=== PATIENT | female | born 1955 | race Caucasian/White ===

== ENCOUNTER 2024-04-22 12:18 | Inpatient (IN) ==
[2024-04-22 13:38] LABS: Basophils # (auto) 0.07 K/uL (0.00-0.20); Eosinophils # (auto) 0.07 K/uL (0.00-0.50); Hemoglobin 15.6 g/dl (12.0-16.0); Immature Granulocytes # (auto) 0.01 K/uL (0.01-0.20); Immature Granulocytes % (auto) 0.1 %; Lymphocytes # (auto) 1.23 K/uL (1.20-3.40); Lymphocytes % (auto) 17.5 %; Mean Corpuscular Hemoglobin 31.3 pg (25.0-34.0); Mean Corpuscular Hgb Conc 33.9 g/dL (32.0-36.0); Mean Corpuscular Volume 92.2 fL (80.0-100.0); Mean Platelet Volume 11.3 fL (9.4-12.4); Monocytes % (auto) 7.1 %; Neutrophils # (auto) 5.15 K/uL (1.40-6.50); Neutrophils % (auto) 73.3 %; Platelet Count 309 K/uL (130-400); RDW Coefficient of Variation 12.8 % (11.5-14.5); Red Blood Count 4.99 M/uL (4.20-5.40); White Blood Count 7.03 K/ul (4.8-10.8)
[2024-04-22 13:54] LABS: Albumin Globulin Ratio 1.5 (0.9-2); Albumin Level 4.7 gm/dl (3.4-5.0); BUN Creatinine Ratio 24.5 (10-20); Bilirubin,Total 1.2 mg/dl (0.2-1.0); Calcium 9.9 mg/dl (8.6-10.3); Creatinine Clr Calc Pharmacy 59.7 ml/min; Globulin 3.2 gm/dl (2.5-4.0); Total Protein 7.9 gm/dl (6.0-8.3)
--- NOTE | 2024-04-22 13:57 | XRay Report ---
XR chest 1V portable HISTORY: 68 years-old Female Chest pain, nonspecific COMPARISON: None TECHNIQUE: AP view of the chest FINDINGS: Cardiac silhouette is upper limits of normal in size. No pneumothorax, pleural effusion or pulmonary edema. Minimal left basilar atelectasis. Bones appear grossly intact. IMPRESSION: No acute process. ACT 112: Negative or not required by law. The above report was generated using voice recognition software. It may contain grammatical, syntax o r spelling errors. Electronically signed by: Randy To M.D. 04/22/2024 1:55 PM
[2024-04-22 14:01] LABS: Troponin I High Sensitivity 6.8 pg/ml (0-14)
[2024-04-22 14:05] LABS: Partial Thromboplastin Ratio 0.9; Partial Thromboplastin Time 24 Seconds (21-31); Prothrombin Time 10.4 Seconds (9.0-12.0)
[2024-04-22 14:15] LABS: Influenza A virus by PCR Negative (Neg); Influenza B virus by PCR Negative (Neg); RSV by PCR Negative (Neg); SARS CoV2 RNA(COVID-19) Ceph NEGATIVE (Negative)
--- NOTE | 2024-04-22 14:31 | Emergency Department Note ---
Impression & Plan Dysrhythmia, Tachycardia, Bradycardia, Heart palpitations ED Provider Note HISTORY OF PRESENT ILLNESS: Patient is a 68-year-old female presenting with episodes of tachycardia and bradycardia. Patient reports that she has been having intermittent episodes of bradycardia over the last few years. She states she has had extensive cardiac workup, but states that in the last few weeks her episodes are occurring more frequently. She states that her care is being transferred from [facility] to the [facility] and her doctor was ordering a bunch of lab work and an echocardiogram. Patient reports in the last week she has been having significant amounts of bradycardic episodes in which she feels very lightheaded and fatigued. Reports that she sleeps 10 to 12 hours a night and is still very tired when she wakes in the morning. States that at times her heart rate also is elevated and feels like her heart is racing. She states that last night she was unable to sleep secondary to her persistent tachycardia. Reports that this morning she was on her way to the hospital to get blood work done when she was walking to her car and her heart rate went up to 170 and has been persistently tachycardic since. Denies any DVT or PE history. Denies any recent surgery or long travel. She is not on any anticoagulation or antiplatelet therapy. Denies any history of cardiac stents. Denies any recent nausea or vomiting. Denies any fevers. Patient denies any recent medication changes. ROS: as above PHYSICAL EXAM: Constitutional: Patient appears in no acute distress. HENT: Head: Normocephalic and atraumatic. Eyes: EOMI, PERRL Mouth/Throat: Mucous membranes moist. Neck: Trachea midline. Neck supple. Cardiovascular: Tachycardic with regular rhythm. No murmurs, rubs or gallops. Intact distal pulses. Pulmonary/Chest: No respiratory distress. Breath sounds clear and equal bilaterally. No wheezes or rales. Abdominal: Abdomen soft, no tenderness, rebound or guarding. Musculoskeletal: No edema, tenderness or deformity noted. Skin: Warm and dry. No rash, erythema, pallor or cyanosis Psychiatric: Appropriate mood and affect for situation. Neurological: Alert and keenly responsive. CN II-XII grossly intact, moving all extremities equally and fully. MDM: - Vitals signs showed tachycardia - History obtained via patient. History as above. - Chronic conditions affecting care: HTN - Differential diagnoses include, but are not limited to: Electrolyte abnormality; hypo or hyperthyroidism; ACS; pneumonia; dysrhythmia; dehydration; PE - Order placed for continuous cardiac monitoring. At this time, monitor showed rate of 66 bpm with normal sinus rhythm, per my interpretation. - External medical records reviewed. - EKG image interpreted by myself showed atrial fibrillation. Rate 124 bpm. QT 264. No acute ischemic changes - Laboratory workup interpreted by myself showed normal WBC; normal PT/INR; elevated D-dimer (1110); normal electrolytes; elevated total bilirubin (1.2); normal troponin; normal TSH - COVID/flu/RSV negative - CXR imagine interpreted myself is negative for any evidence of pneumonia, per my interpretation. - CT PE negative for PE. Noted to have mild cardiomegaly and simple renal cysts. Also noted to have a low suspicious right upper lobe pulmonary nodule. - Patient given 1L NS in ER. Patient was persistently tachycardic in the ER, with an average heart rate in the 120s to 130s. Her heart rate did go down to the low 100s after her liter bolus. However, patient stated she started to feel flushed and develop a diffuse headache and her heart rate dropped into the 50s and into a normal sinus rhythm. A repeat EKG obtained at 17:44 interpreted myself showed normal sinus rhythm. Rate 62 bpm. QT 436. No acute ischemic changes. Noted to have PVCs. Also noted to have a shortened MN interval. - Given patient's age and episodes of tachycardia and bradycardia, will admit to hospital service for further cardiac workup. - Discussion was had with case operator about patient's case and need for admission - Hospitalist consulted for admission - Patient admitted to [facility] for further evaluation and management. ASSESSMENT AND PLAN: Diagnosis: Dysrhythmia; tachycardia; bradycardia; palpitations Plan: Admit Past Med/Surg History Problem List (Updated 04/22/24 @ 18:12 by Arlet Gregory MD) Heart palpitations (Acute) Bradycardia (Acute) Tachycardia (Acute) Dysrhythmia (Acute) Social History Smoking Status: Never smoker Feels Safe at Home: Yes Home Meds Home Medications Medication Instructions Recorded Confirmed alprazolam 0.25 mg tablet 0.25 mg PO DIRECTED 04/22/24 hydrochlorothiazide 12.5 mg tablet 12.5 mg PO DAILY 04/22/24 04/22/24 Results & Data (ED) Vital Signs Vital Signs - 24 hr 04/22/24 12:22 04/22/24 13:37 04/22/24 13:37 Temperature Temperature Source Pulse Rate 103 H 143 H Pulse Rate from SpO2 Sensor Pulse Rhythm Irregular Respiratory Rate 20 20 Blood Pressure 128/80 Blood Pressure Mean 96 Pulse Oximetry 99 99 Oxygen Delivery Method Room Air Room Air Room Air Sepsis Recent Fever Within 48 Hours No Sepsis New/Unexplained Change in Mental Status N/A Sepsis Action Taken by Nursing No Action Required 04/22/24 14:00 04/22/24 14:01 04/22/24 14:04 Temperature 36.8 C Temperature Source Oral Pulse Rate 124 H 136 H Pulse Rate from SpO2 Sensor 127 H Pulse Rhythm Respiratory Rate 31 H Blood Pressure 125/103 H Blood Pressure Mean 117 Pulse Oximetry 96 Oxygen Delivery Method Room Air Sepsis Recent Fever Within 48 Hours Sepsis New/Unexplained Change in Mental Status Sepsis Action Taken by Nursing 04/22/24 14:33 04/22/24 15:06 04/22/24 15:33 Temperature Temperature Source Pulse Rate 108 H 100 H 111 H Pulse Rate from SpO2 Sensor 102 H 105 H 91 H Pulse Rhythm Respiratory Rate 15 19 18 Blood Pressure 126/104 H 142/111 H 166/115 H Blood Pressure Mean 111 121 132 Pulse Oximetry 95 97 99 Oxygen Delivery Method Room Air Room Air Sepsis Recent Fever Within 48 Hours Sepsis New/Unexplained Change in Mental Status Sepsis Action Taken by Nursing 04/22/24 16:09 04/22/24 16:30 04/22/24 17:03 Temperature Temperature Source Pulse Rate 115 H 112 H 117 H Pulse Rate from SpO2 Sensor 135 H 102 H 125 H Pulse Rhythm Respiratory Rate 21 28 H 19 Blood Pressure 145/117 H 104/76 159/104 H Blood Pressure Mean 126 85 122 Pulse Oximetry 88 L 98 99 Oxygen Delivery Method Sepsis Recent Fever Within 48 Hours Sepsis New/Unexplained Change in Mental Status Sepsis Action Taken by Nursing 04/22/24 17:42 Temperature Temperature Source Pulse Rate 63 Pulse Rate from SpO2 Sensor Pulse Rhythm Respiratory Rate Blood Pressure Blood Pressure Mean Pulse Oximetry Oxygen Delivery Method Sepsis Recent Fever Within 48 Hours Sepsis New/Unexplained Change in Mental Status Sepsis Action Taken by Nursing Laboratory Data 04/22/24 13:16 04/22/24 13:16 Lab Results 04/22/24 04/22/24 Range/Units 13:16 13:18 WBC 7.03 (4.8-10.8) K/ul RBC 4.99 (4.20-5.40) M/uL Hgb 15.6 (12.0-16.0) g/dl Hct 46.0 (37.0-47.0) % MCV 92.2 (80.0-100.0) fL MCH 31.3 (25.0-34.0) pg MCHC 33.9 (32.0-36.0) g/dL RDW Std Deviation 43.0 (36.4-46.3) fL RDW Coeff of Valorie 12.8 (11.5-14.5) % Plt Count 309 (130-400) K/uL MPV 11.3 (9.4-12.4) fL Immature Gran % (Auto) 0.1 % Neut % (Auto) 73.3 % Lymph % (Auto) 17.5 % [place] % (Auto) 7.1 % Eos % (Auto) 1.0 % Baso % (Auto) 1.0 % Neut # (Auto) 5.15 (1.40-6.50) K/uL Lymph # (Auto) 1.23 (1.20-3.40) K/uL [place] # (Auto) 0.50 (0.11-0.59) K/uL Eos # (Auto) 0.07 (0.00-0.50) K/uL Baso # (Auto) 0.07 (0.00-0.20) K/uL Immature Gran # (Auto) 0.01 (0.01-0.20) K/uL PT 10.4 (9.0-12.0) Seconds INR 1.0 (0.9-1.1) APTT 24 (21-31) Seconds PTT Ratio 0.9 D-Dimer 1110 H* (0-500) ug/L FEU Sodium 139 (136-145) mmol/L Potassium 4.0 (3.5-5.1) mmol/L Chloride 104 (98-107) mmol/L Carbon Dioxide 27 (21-32) mmol/L Anion Gap 8 (3-11) BUN 23 (6-23) mg/dl Creatinine 0.94 (0.6-1.2) mg/dl Est Cr Clr Drug Dosing 59.7 ml/min eGFR 66.09 BUN/Creatinine Ratio 24.5 H (10-20) Glucose 116 H (70-99(Fasting)) mg/dl Calcium 9.9 (8.6-10.3) mg/dl Magnesium 2.0 (1.7-2.4) mg/dl Total Bilirubin 1.2 H (0.2-1.0) mg/dl AST 19 (13-39) U/L ALT 20 (7-52) U/L Alkaline Phosphatase 54 (34-104) U/L Troponin I High Sens 6.8 (0-14) pg/ml Total Protein 7.9 (6.0-8.3) gm/dl Albumin 4.7 (3.4-5.0) gm/dl Globulin 3.2 (2.5-4.0) gm/dl Albumin/Globulin Ratio 1.5 (0.9-2) TSH 2.088 (0.300-4.500) uIu/ml SARS-CoV-2 (PCR) NEGATIVE (Negative) Influenza Type A (PCR) Negative (Neg) Influenza Type B (PCR) Negative (Neg) RSV (RT-PCR) Negative (Neg) Administered Medications Discontinued Medications Sodium Chloride (Nss) 1,000 mls @ 999 mls/hr IV .Q1H1M ONE Stop: 04/22/24 15:28 Last Infusion: 04/22/24 17:13 Dose: Infused Documented By: Admin: 04/22/24 15:02 Dose: 999 mls/hr Documented By: SRL Ioversol (Optiray 320 125ml) 115 ml IV ONCE ONE Stop: 04/22/24 16:55 Last Admin: 04/22/24 16:54 Dose: 115 ml Documented By: ZENY Imaging Data Radiologist's Impression: Chest X-Ray 04/22/24 12:25 XR chest 1V portable HISTORY: 68 years-old Female Chest pain, nonspecific COMPARISON: None TECHNIQUE: AP view of the chest FINDINGS: Cardiac silhouette is upper limits of normal in size. No pneumothorax, pleural effusion or pulmonary edema. Minimal left basilar atelectasis. Bones appear grossly intact. IMPRESSION: No acute process. ACT 112: Negative or not required by law. The above report was generated using voice recognition software. It may contain grammatical, syntax or spelling errors. Electronically signed by: Randy To M.D. 04/22/2024 1:55 PM Chest CTA 04/22/24 16:35 EXAM: CT Angiography Chest With Intravenous Contrast INDICATION: Extremely variable heart rate. TECHNIQUE: Axial computed tomographic angiography images of the chest with intravenous contrast. Sagittal and coronal reformatted images were created and reviewed. This CT exam was performed using one or more of the following dose reduction techniques: automated exposure control, adjustment of the mA and/or kV according to patient size, and/or use of iterative reconstruction technique. MIP reconstructed images were created and reviewed. CONTRAST: 115ml of Optiray 320 was administered intravenously. COMPARISON: No relevant prior studies available. FINDINGS: Pulmonary arteries: No abnormality noted. No pulmonary embolism. Aorta: No aneurysm or dissection. There is minimal scattered calcific plaque. Lungs and pleural spaces: There is mild atelectasis in the lower lobes left greater than right. Low suspicion 3 mm right apical nodule coronal image 48. No consolidation. No bronchiectasis, honeycombing or reticulation. No pleural effusion or pneumothorax. Heart: There is mild cardiomegaly particularly involving the left atrium. No pericardial effusion. There is minimal calcification of the mitral valve. No evidence of RV dysfunction. Mediastinum: Small sliding hiatal hernia noted. Bones/joints: No acute or atypical chronic changes. Soft tissues: No abnormality noted. Lymph nodes: Enlarged right hilar node measures 1.4 cm short axis dimension. There is a 1 cm borderline enlarged short axis dimension aorta pulmonic node. Liver: Low attenuation foci in the liver consistent with hepatic cysts. No follow-up is necessary. Gallbladder and bile ducts: Cholecystectomy. No ductal dilation or stone noted. 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 Simple cysts noted in each kidney. There are some indeterminant hypodensities in each kidney which are not characterized. IMPRESSION: 1. No pulmonary embolus noted. No aortic dissection. 2. Mild cardiomegaly particularly involving the left atrium. Minimal mitral calcification. 3. Mild atelectasis in the lung bases left greater than right. 4. Nonspecific probably reactive mild adenopathy. 5. Simple renal cysts and hypodensities which cannot be characterized due to size. No further assessment considered necessary. 6. 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 No further evaluation required. 7. 7 mm low suspicion right upper lobe pulmonary nodule. Fleischner Society Guidelines (MacMahon, et al. Radiology 2017; 284(1):228-43) suggest the following. For low-risk or high-risk patients consider chest CT at 12 months due to the morphology and/or location of this nodule. ACT 112: Negative or not required by law. Electronically signed by Lien Mehta 04-22-2024 5:25 PM Discharge Plan Visit Data Chief Complaint: Hypotension Stated Complaint: BRADACARDIA, HYPOTENSION, SOB ED Provider: Arlet Gregory Discharge Problem: Dysrhythmia, Tachycardia, Bradycardia, Heart palpitations Forms Stand Alone Forms: [facility] Prescriptions Prescriptions: No Action alprazolam 0.25 mg tablet 0.25 mg PO DIRECTED hydrochlorothiazide 12.5 mg tablet 12.5 mg PO DAILY Referrals Referrals: PCP,NO [Physician] -
[2024-04-22] MEDS: SODIUM CHLORIDE 0.9% 1,000 ML IV ONE (15:02)
[2024-04-22 15:35] LABS: Thyroid Stimulating Hormone 2.088 uIu/ml (0.300-4.500)
--- NOTE | 2024-04-22 15:36 | Electrocardiogram Report ---
Test Reason : Blood Pressure : */* mmHG Vent. Rate : 124 BPM Atrial Rate : 124 BPM P-R Int : 184 ms QRS Dur : 88 ms QT Int : 264 ms P-R-T Axes : 32 29 224 degrees QTcB Int : 379 ms Atrial fibrillation with rapid ventricular response Left ventricular hypertrophy with repolarization abnormality ( R in aVL ) Abnormal ECG No previous ECGs available Confirmed by Carlo Ramos ([id number]) on 04/22/2024 3:35:37 PM Referred By: REFERRED SELF Confirmed By: Carlo Ramos
[2024-04-22 16:28] LABS: D Dimer 1110 ug/L FEU (0-500)
[2024-04-22] MEDS: OPTIRAY 320 125ml IV ONE (16:54)
--- NOTE | 2024-04-22 17:25 | CT Scan Report ---
EXAM: CT Angiography Chest With Intravenous Contrast INDICATION: Extremely variable heart rate. TECHNIQUE: Axial computed tomographic angiography images of the chest with intravenous contrast. Sagittal and coronal reformatted images were created and reviewed. This CT exam was performed using one or more of the following dose reduction techniques: automated exposure control, adjustment of the mA and/or kV according to patient size, and/or use of iterative reconstruction technique. MIP reconstructed images were created and reviewed. CONTRAST: 115ml of Optiray 320 was administered intravenously. COMPARISON: No relevant prior studies available. FINDINGS: Pulmonary arteries: No abnormality noted. No pulmonary embolism. Aorta: No aneurysm or dissection. There is minimal scattered calcific plaque. Lungs and pleural spaces: There is mild atelectasis in the lower lobes left greater than right. Low suspicion 3 mm right apical nodule coronal image 48. No consolidation. No bronchiectasis, honeycombing or reticulation. No pleural effusion or pneumothorax. Heart: There is mild cardiomegaly particularly involving the left atrium. No pericardial effusion. There is minimal calcification of the mitral valve. No evidence of RV dysfunction. Mediastinum: Small sliding hiatal hernia noted. Bones/joints: No acute or atypical chronic changes. Soft tissues: No abnormality noted. Lymph nodes: Enlarged right hilar node measures 1.4 cm short axis dimension. There is a 1 cm borderline enlarged short axis dimension aorta pulmonic node. Liver: Low attenuation foci in the liver consistent with hepatic cysts. No follow-up is necessary. Gallbladder and bile ducts: Cholecystectomy. No ductal dilation or stone noted. 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 Simple cysts noted in each kidney. There are some indeterminant hypodensities in each kidney which are not characterized. IMPRESSION: 1. No pulmonary embolus noted. No aortic dissection. 2. Mild cardiomegaly particularly involving the left atrium. Minimal mitral calcification. 3. Mild atelectasis in the lung bases left greater than right. 4. Nonspecific probably reactive mild adenopathy. 5. Simple renal cysts and hypodensities which cannot be characterized due to size. No further assessment considered necessary. 6. 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 No further evaluation required. 7. 7 mm low suspicion right upper lobe pulmonary nodule. Fleischner Society Guidelines (MacMahon, et al. Radiology 2017; 284(1):228-43) suggest the following. For low-risk or high-risk patients consider chest CT at 12 months due to the morphology and/or location of this nodule. ACT 112: Negative or not required by law. Electronically signed by Lien Mehta 04-22-2024 5:25 PM
--- NOTE | 2024-04-22 17:47 | History & Physical Report ---
Date of Service April 22, 2024 Assessment & Plan (1) Tachy-raymond syndrome: Plan Khushi is a pleasant 68-year-old female without significant PMH. She presented on 04/22 for intermittent episodes of tachycardia and bradycardia. Patient reports she does have an extensive cardiac history. For the main part she is experienced bradycardia in the past. She would have episodes where she would be sitting at home watching TV, and she would feel her heart rate dropped into the 30 to 40 bpm range. She also has this occur when she is driving for extended periods of time. She begins to feel lightheaded, and so she usually tries to get up and walk around, and this alleviates some of her symptoms. In the past month however, she had at least 4 episodes of chest palpitations and rapid heart rate, with the last episode being the morning on 04/22 when it got up to 165 bpm (per her watch). No prior history of atrial fibrillation to her knowledge. #Tachybradycardia syndrome Patient has been oscillating between 160 bpm and 30 bpm in the emergency department Patient becomes symptomatic/lightheaded when bradycardic, and can feel chest palpitations when she becomes tachycardic No prior history of CAD or heart stents Troponin WNL on arrival TSH WNL on arrival Chest CTA did not reveal acute pulmonary emboli or aortic abnormalities While the initial EKG was read as atrial fibrillation with RVR, repeat EKG revealed clear P waves (sinus rhythm with short PA) Echocardiogram ordered, pending Lyme screen ordered, pending Continuous telemetry monitoring Cardiology consult appreciated Pacer pads at bedside Atropine 1 mg IV on-call PRN for symptomatic bradycardia and/or hemodynamic instability Avoid beta-blockers Disposition: Admit to PCU telemetry Full code Regular diet VTE PPx: Lovenox 40 mg SQ q24h History of Present Illness Chief Complaint: Intermittent tachycardia and bradycardia Primary Care Provider: Kirstie Fajardo MD Khushi is a pleasant 68-year-old female without significant PMH. She presented on 04/22 for intermittent episodes of tachycardia and bradycardia. Patient reports she does have an extensive cardiac history. For the main part she is experienced bradycardia in the past. She would have episodes where she would be sitting at home watching TV, and she would feel her heart rate dropped into the 30 to 40 bpm range. She also has this occur when she is driving for extended periods of time. She begins to feel lightheaded, and so she usually tries to get up and walk around, and this alleviates some of her symptoms. In the past month however, she had at least 4 episodes of chest palpitations and rapid heart rate, with the last episode being the morning on 04/22 when it got up to 165 bpm (per her watch). No prior history of atrial fibrillation to her knowledge. She was recently tried to get set up with a operations intelligence here in [place], and was recommended to be set up with an lead javascript developer in [place]. Patient did have a Holter monitor 3 years ago, but they reportedly did not see any bradycardia at that time. She is not currently following with operations intelligence; currently being transferred over from [facility] to the [facility]. No prior history of heart stents. She has had 2 catheterizations in the past both of which were "clean". Her last catheterization was around 5 years ago. Her only daily medication is hydrochlorothiazide 12.5 mg daily which she takes for fluid buildup; no issues with her blood pressure. Occasionally she also takes seasonal allergy medications. Patient only drinks 1 cup of coffee in the morning, and does not believe that this is secondary to caffeine. She denies any syncopal episodes with her bradycardia, but has been as low as 36 bpm before. She does endorse being around several sick contacts this past week, including her who had a cough and congestion, and her daughter who had influenza A. Patient denies noticing any rashes on her body or tick bites. Patient denies smoking, tobacco use, recent alcohol use. She reports she has not had an echocardiogram done in an extended period of time; unsure how long. Patient is hypertensive at 159/104 at time admission; vitals otherwise stable. ED course: NSS 1000 mL IV ROS: Patient endorses generalized fatigue, lightheadedness, headache, difficulty swallowing, chest palpitations (with tachycardia), lightheadedness (with bradycardia), and dry cough. Patient denies syncope, fever, chills, night-sweats, chest pain, pleuritic CP, SOB, abdominal pain, N/V/D, changes in urinary/bowel habits, or numbness or tingling in her arms or legs. Home Medications Medication Instructions Recorded Confirmed Type alprazolam 0.25 mg tablet 0.25 mg PO UD 04/22/24 04/22/24 History hydrochlorothiazide 12.5 mg tablet 12.5 mg PO DAILY 04/22/24 04/22/24 History Past Med/Surg History Problem List (Updated 04/22/24 @ 18:51 by Lai Mares PA-C) Tachy-raymond syndrome Heart palpitations (Acute) Bradycardia (Acute) Tachycardia (Acute) Dysrhythmia (Acute) Social History Smoking Status: Never smoker Feels Safe at Home: Yes Review of Systems Review of Systems: See HPI above Physical Exam Physical Exam: General: no acute distress; pleasant affect; non-toxic appearing; well- nourished; cooperative HEENT: normocephalic, atraumatic; no scleral icterus; PERRLA w/ EOMs intact; vision and hearing grossly intact Neck: supple; no lymphadenopathy; trachea midline Skin: warm, dry without signs of tenting; no cyanosis; no rashes, bruising, lesions, or erythema noted CV: chest wall NTP; irregular rhythm around 60 bpm; S1/S2 normal; no murmurs/rubs/gallops; pulses intact and symmetric at radial, DP, and PT Lungs: no acute respiratory distress; symmetrical chest wall expansion; clear breath sounds across all lung franklin w/o adventitious sounds; no wheezing ABD: Soft, NTP; BS present; no rebound/guarding; no distention; no rashes or bruising appreciated on the abdomen or flanks bilaterally MSK: no tics or fasciculations; no edema noted in the LEs b/l, nonerythematous Neuro: A&Ox3; normal mood and affect; fluent speech; no focal deficits; sensation intact and symmetric in the lower extremities bilaterally Results & Data Results & Data Vital Signs (Past 12 Hours) Vital Signs Temp Pulse Resp BP Pulse Ox O2 Del Method 04/22/24 17:03 117 H 19 159/104 H 99 04/22/24 16:30 112 H 28 H 104/76 98 04/22/24 16:09 115 H 21 145/117 H 88 L 04/22/24 15:33 111 H 18 166/115 H 99 04/22/24 15:06 100 H 19 142/111 H 97 Room Air 04/22/24 14:33 108 H 15 126/104 H 95 Room Air 04/22/24 14:04 136 H 04/22/24 14:01 124 H 31 H 125/103 H 96 Room Air 04/22/24 14:00 36.8 C 04/22/24 13:37 143 H 20 99 Room Air 04/22/24 13:37 Room Air 04/22/24 12:22 103 H 20 128/80 99 Room Air Laboratory Results Abnormal lab results 04/22/24 Range/Units 13:16 D-Dimer 1110 H* (0-500) ug/L FEU BUN/Creatinine Ratio 24.5 H (10-20) Glucose 116 H (70-99(Fasting)) mg/dl Total Bilirubin 1.2 H (0.2-1.0) mg/dl Diagnostic Findings Chest X-Ray 04/22/24 12:25 XR chest 1V portable HISTORY: 68 years-old Female Chest pain, nonspecific COMPARISON: None TECHNIQUE: AP view of the chest FINDINGS: Cardiac silhouette is upper limits of normal in size. No pneumothorax, pleural effusion or pulmonary edema. Minimal left basilar atelectasis. Bones appear grossly intact. IMPRESSION: No acute process. ACT 112: Negative or not required by law. The above report was generated using voice recognition software. It may contain grammatical, syntax or spelling errors. Electronically signed by: Randy To M.D. 04/22/2024 1:55 PM Chest CTA 04/22/24 16:35 EXAM: CT Angiography Chest With Intravenous Contrast INDICATION: Extremely variable heart rate. TECHNIQUE: Axial computed tomographic angiography images of the chest with intravenous contrast. Sagittal and coronal reformatted images were created and reviewed. This CT exam was performed using one or more of the following dose reduction techniques: automated exposure control, adjustment of the mA and/or kV according to patient size, and/or use of iterative reconstruction technique. MIP reconstructed images were created and reviewed. CONTRAST: 115ml of Optiray 320 was administered intravenously. COMPARISON: No relevant prior studies available. FINDINGS: Pulmonary arteries: No abnormality noted. No pulmonary embolism. Aorta: No aneurysm or dissection. There is minimal scattered calcific plaque. Lungs and pleural spaces: There is mild atelectasis in the lower lobes left greater than right. Low suspicion 3 mm right apical nodule coronal image 48. No consolidation. No bronchiectasis, honeycombing or reticulation. No pleural effusion or pneumothorax. Heart: There is mild cardiomegaly particularly involving the left atrium. No pericardial effusion. There is minimal calcification of the mitral valve. No evidence of RV dysfunction. Mediastinum: Small sliding hiatal hernia noted. Bones/joints: No acute or atypical chronic changes. Soft tissues: No abnormality noted. Lymph nodes: Enlarged right hilar node measures 1.4 cm short axis dimension. There is a 1 cm borderline enlarged short axis dimension aorta pulmonic node. Liver: Low attenuation foci in the liver consistent with hepatic cysts. No follow-up is necessary. Gallbladder and bile ducts: Cholecystectomy. No ductal dilation or stone noted. 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 Simple cysts noted in each kidney. There are some indeterminant hypodensities in each kidney which are not characterized. IMPRESSION: 1. No pulmonary embolus noted. No aortic dissection. 2. Mild cardiomegaly particularly involving the left atrium. Minimal mitral calcification. 3. Mild atelectasis in the lung bases left greater than right. 4. Nonspecific probably reactive mild adenopathy. 5. Simple renal cysts and hypodensities which cannot be characterized due to size. No further assessment considered necessary. 6. 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 No further evaluation required. 7. 7 mm low suspicion right upper lobe pulmonary nodule. Fleischner Society Guidelines (MacMahon, et al. Radiology 2017; 284(1):228-43) suggest the following. For low-risk or high-risk patients consider chest CT at 12 months due to the morphology and/or location of this nodule. ACT 112: Negative or not required by law. Electronically signed by Lien Mehta 04-22-2024 5:25 PM ECG Additional Comments: Initial ECG revealed atrial fibrillation with RVR at 124 bpm Repeat ECG revealed sinus rhythm with short PA with occasional PVCs and PACs at 62 bpm; QTc 442 Code Status & VTE Plan Code Status Full code VTE Prophylaxis Plan VTE Prophylaxis will be ordered: Yes Supervising Physician Co-Signing Physician Notes Patient seen and examined, chart reviewed, case discussed with Lai Mares PA-C and I agree with the assessment and plan as above except as otherwise noted Labs and images reviewed Khushi is 68-year-old female who presents with palpitations, lightheadedness, and concerns for anxiety. While in the ER patient is noted to have tachybradycardia syndrome alternating between tachycardia and [id number] with symptomatic palpitations and general unwellness and then alternating with bradycardia as low as the 30s with lightheadedness. She has not had chest pain. She is not on anticoagulation. No prior ischemic disease. She is up in [place] patient currently transferring care over to [facility]. Records requested for outpatient records and recent echo D-dimer is elevated however CTA does not show evidence of PE. Mild atelectasis is noted. Suspected reactive mild adenopathy is noted. Incidental 9 mm angiomyolipoma of the right kidney without hemorrhage is noted. 7 mm low suspicion right upper lobe pulmonary nodule is noted for which patient can have a repeat chest CT at 12 months for reevaluation as outpatient. High sensitive troponin is normal She is not on beta-blockers at baseline. Lyme screen pending She has had extensive workup in the past for bradycardia and has had 2 Holter's reportedly showed some bradycardia at night but were otherwise okay. She has a history of failed stress test but follow-up catheterizations did not show obstructive disease. Records are pending. She has not had chest pain with these episodes but her heart racing was new and she has not experienced this bef ore. She has not had any bleeding problems in the past and does not think she has ever had A-fib in the past. EKG on arrival is with A-fib rate 120. Repeat EKG while in the ER is with bradycardia and short PA now sinus. Admitted to PCU, pacer pads at bedside. Beta-ryan is not recommended due to symptomatic bradycardia with her tachybradycardia syndrome. Echo pending. Cardiology consulted Given documented A-fib and [id number] of 2 do recommend patient be on prophylactic anticoagulation.Lovenox 1mpk added. Patient could potentially transition to Eliquis or Xarelto, would like to review potential cost options with case management prior to deciding on any agent if possible PG Care Time/CCT Total # of Minutes Spent Total Time Spent with Patient: Total time spent is greater than 50% in coordination of care (as documented) at patient's floor/unit and/or counseling patient: [place] [address] INT INP/OBS CARE 3/75MIN Patient Type New Medical Decision Making High Complexity Diagnoses Tachy-raymond syndrome I49.5
[2024-04-22] MEDS ORDERED: ACETAMINOPHEN 325 MG TAB PO PRN (21:39)
[2024-04-22] MEDS ORDERED: ENOXAPARIN 1 MG/KG SQ SCH (21:39)
[2024-04-22] MEDS ORDERED: ATROPINE SO4 1 MG/ML 1ML VIAL IV PRN (21:39)
[2024-04-22] MEDS ORDERED: ONDANSETRON INJ 2 MG/ML 2 ML VIAL IV PRN (21:39)
[2024-04-23] MEDS: ENOXAPARIN 100 MG/1ML SYR SQ SCH (01:53)
--- NOTE | 2024-04-23 09:33 | Cardiology Consultation ---
Date of Consultation April 23, 2024 Assessment & Plan (1) Atrial fibrillation: (2) Heart palpitations: Plan 1. Atrial fibrillation: Her presenting rhythm appears to be atrial fibrillation. We want EKG for evaluation and some telemetry. Remote possibility that this represents atrial flutter, but the determination would suggest atrial fibrillation. She does have a watch that has not given her any warnings about atrial fibrillation. She is not confident that the current model would give her such a warning. I believe this is the first documentation of atrial fibrillation although it is possible she has had brief episodes in the past. She has a dilated left atrium and frequent atrial ectopy which provides the substrate for developing atrial fibrillation. Her [id number] score is at least 2. As such, I think she benefits from initiating systemic anticoagulati on. Any of the agents would be satisfactory, my recommendation would be Eliquis 5 mg twice daily. 2. Tachycardia/palpitations: Review of her telemetry suggest frequent atrial ectopy and runs of atrial tachycardia. This is likely what initiated her atrial fibrillation. Unclear if this has been documented previously but likely in the etiology of her palpitations over the years. Also possibly the etiology of her "bradycardia" as many of these ectopic beats were likely under counted by standard monitoring. Overall benign condition in the absence of symptoms, although it likely plays a role in the development of her atrial fibrillation. However, she appears to be quite symptomatic and I think both arrhythmias can be successfully treated with antiarrhythmic therapy. Given her structurally normal heart and presumed absence of coronary disease, she would be a good candidate for a class Ic agent. 1C agents are generally prescribed with some form of AV henrik suppression such as metoprolol. With her history of "bradycardia" I think with need to evaluate her heart rates more thoroughly. This could be done in the inpatient setting over the next few days or outpatient monitoring. Unclear to me if she truly has episodes of bradycardia or if these were paroxysmal in the past associated with high vagal tone. If she truly has periods of bradycardia then therapy for her tach arrhythmias would be complicated. That scenario would be an indication for permanent pacing which we discussed today. I gave the patient the option of staying in the hospital for monitoring over the next couple of days. This would primarily be to document bradycardia. In the setting of bradycardia she would be a good candidate for a pacemaker. In the absence of bradycardia we can feel comfortable initiating antiarrhythmic therapy and metoprolol. Alternatively, I think she could be safely discharged with outpatient monitoring as well. In either case starting anticoagulation is recommended based on her presenting arrhythmia. History of Present Illness Reason for Consultation: Tachycardia Requesting Physician: Sindy Attending Physician: Junito Holloway MD History of Present Illness The patient is a 68-year-old woman with a history of cardiac arrhythmia who presents to the hospital with an episode of palpitation. She reports an extensive evaluation over several years by her primary lucerne farmer in [place]. It seems that at least 10 years ago she was being evaluated for episodes of bradycardia and dizziness. Her evaluation involved outpatient monitoring, exercise stress testing, echocardiography and cardiac catheterization. Some of these tests were performed more than once. She also reports being evaluated by an ict developer in [place]. Recommendation at that time was to consider a tilt table test, increased salt and caffeine intake. By her report her outpatient monitors have generally been considered normal. She states that she performed 1 within the past 3 years through her primary care provider and was told that there were no abnormalities. She also recalls normal catheterization without percutaneous intervention and normal echocardiography. She has never been on medical therapy for her cardiac condition. In general she is an active person. 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 She walks regularly and her walking usually involves ascending and descending hills. She does not report any specific limitation with activity such as dyspnea, exertional chest pain or dizziness. In fact, when she is active, she generally does not notice symptoms. When she is at rest she will notice palpitations that she describes as a rapid and irregular heartbeat at times. She does have a watch which monitors her heart rate and she states that at times the heart rate will be low. She feels that over time most of her difficulty has been related to low heart rates. She does describe some episodes where she has had syncope over the years. Most of these involve some prodrome. No orthostatic type symptoms. Recently she has felt more fatigued. In fact, this appeared to be her main concern. She states that since she is just felt more tired and has had more difficulty performing her usual activity. She did notice a high heart rate on her watch yesterday, but surprisingly had few symptoms. Seems that she presented more for symptoms of fatigue and was actually surprised to find that her heart rate was still high when she came to the hospital. Currently feeling well without symptoms. Home Medications Medication Instructions Recorded Confirmed Type alprazolam 0.25 mg tablet 0.25 mg PO UD 04/22/24 04/22/24 History hydrochlorothiazide 12.5 mg tablet 12.5 mg PO DAILY 04/22/24 04/22/24 History Patient History Social History Smoking Status: Never smoker Hx Alcohol Use: Yes Alcohol type: beer and wine Hx Substance Use: No Preferred Language: Azerbaijani Pipe Organ Technician Required: No Beliefs That Will Affect Care: None Current Living Situation: Spouse Other Information That Helps Us Care for You: No Feels Safe at Home: Yes Safety Concerns: Feels Safe At This Time Assistive Devices: None Review of Systems Review of Systems: Per HPI. In the past she has had some edema and weight gain which appears to be controlled with her current dose of hydrochlorothiazide. No current symptoms of fevers or chills. No change in her bowel habits. Physical Exam Physical Exam: She is alert and oriented x3. Mood affect appear normal. She answered all questions appropriately. HEENT: Sclerae are anicteric. Pupils are equal and reactive to light and accommodation. Extraocular movements were intact. Neuro: Cranial nerves intact Neck: Examination of the submandibular region did not reveal any significant lymphadenopathy. Carotids are palpable bilaterally and free of bruits on auscultation. There was no evidence of jugular venous distention. The thyroid was not enlarged. Lungs: Lungs are clear to auscultation bilaterally. There are no rales wheezes or rhonchi. She has normal respiratory effort without use of accessory muscles. There is normal pulmonary excursion. Cardiac: The rhythm was regular with occasional ectopy. No murmurs. Extremities: Patient has bilateral radial pulses that are equal in intensity. There is no evidence cyanosis or clubbing. There was no evidence of significant peripheral edema bilaterally. Skin: There are no rashes noted on examination today. Results & Data Vital Signs (Past 12 Hours) Vital Signs Temp Pulse Pulse Resp BP BP BP 04/23/24 08:09 59 L 04/23/24 07:13 36.6 C 61 18 162/71 H 04/23/24 04:23 36.7 C 68 16 123/71 04/22/24 23:01 62 04/22/24 22:40 36.5 C 56 L 16 162/80 H 04/22/24 22:00 61 16 126/67 04/22/24 22:00 55 L 19 126/67 04/22/24 21:40 56 L 20 125/70 Pulse Ox O2 Del Method 04/23/24 08:09 04/23/24 07:13 96 Room Air 04/23/24 04:23 98 Room Air 04/22/24 23:01 04/22/24 22:40 96 Room Air 04/22/24 22:00 93 04/22/24 22:00 92 04/22/24 21:40 92 Room Air Laboratory Results Abnormal Lab Results 04/22/24 04/22/24 13:16 13:18 WBC 7.03 RBC 4.99 Hgb 15.6 Hct 46.0 MCV 92.2 MCH 31.3 MCHC 33.9 RDW Std Deviation 43.0 RDW Coeff of Valorie 12.8 Plt Count 309 MPV 11.3 Immature Gran % (Auto) 0.1 Neut % (Auto) 73.3 Lymph % (Auto) 17.5 Wake % (Auto) 7.1 Eos % (Auto) 1.0 Baso % (Auto) 1.0 Neut # (Auto) 5.15 Lymph # (Auto) 1.23 Wake # (Auto) 0.50 Eos # (Auto) 0.07 Baso # (Auto) 0.07 Immature Gran # (Auto) 0.01 PT 10.4 INR 1.0 APTT 24 PTT Ratio 0.9 D-Dimer 1110 H* Sodium 139 Potassium 4.0 Chloride 104 Carbon Dioxide 27 Anion Gap 8 BUN 23 Creatinine 0.94 Est Cr Clr Drug Dosing 59.7 eGFR 66.09 BUN/Creatinine Ratio 24.5 H Glucose 116 H Calcium 9.9 Magnesium 2.0 Total Bilirubin 1.2 H AST 19 ALT 20 Alkaline Phosphatase 54 Troponin I High Sens 6.8 Total Protein 7.9 Albumin 4.7 Globulin 3.2 Albumin/Globulin Ratio 1.5 TSH 2.088 SARS-CoV-2 (PCR) NEGATIVE Influenza Type A (PCR) Negative Influenza Type B (PCR) Negative RSV (RT-PCR) Negative Diagnostic Findings CTA of the chest did not reveal any pulmonary embolus or aortic pathology. Dilated left atrium. Echocardiogram 04/23/2024: Preserved LV systolic function with ejection fraction 60 to 65%. Normal wall thickness. Normal wall motion. Biatrial dilation with mild to moderate mitral regurgitation. Elevated estimated pulmonary pressures and mildly dilated inferior vena cava. ECG Additional Comments: EKG obtained at the time admission revealed atrial fibrillation rapid ventricular response. Nonspecific ST and T wave changes. PG Care Time/CCT Total # of Minutes Spent Total Time Spent with Patient: Total time spent is greater than 50% in coordination of care (as documented) at patient's floor/unit and/or counseling patient: Coding Level of Care Code 71048 INT INP/OBS CARE 3/75MIN Diagnoses Atrial fibrillation I48.91 Heart palpitations R00.2
[2024-04-23] MEDS: hydroCHLOROthiazide 25 MG TAB PO SCH (10:22)
--- NOTE | 2024-04-23 10:37 | XCELERA ---
[id number]
--- NOTE | 2024-04-23 11:24 | Hospitalist Progress Note ---
Date of Service April 23, 2024 Assessment & Plan (1) Tachy-raymond syndrome: Plan: -cardiology recommending tele monitoring over the weekend to exam rhythm -pt agreeing to stay -F/u echo results -afib/aflutter -pt started on Eliquis -cardiology following Admission and Anticipated Discharge Date Admission Date: April 22, 2024 Subjective No events overnight. Pt resting in bed. She denies any chest pain or palpitations. Review of Systems Review of Systems: CONST: Negative for fever, body aches and chills. HENT: Negative for neck pain/stiffness, headache, congestion, sore throat, swelling. EYES: Negative for discharge/pain or vision changes. RESP: Negative for cough/hemoptysis and shortness of breath. CV: Negative chest pain, difficulty breathing, palpitations. ABD: Negative pain, nausea, vomiting. : Negative increase frequency, dysuria, blood in urine or stool. MUSC: Negative for muscle aches, edema. SKIN: Negative rash, lesions/sores. NEURO: Negative headache, dizziness, weakness. Physical Exam Physical Exam: GENERAL APPEARANCE NAD, activity normal for age, well developed/ well nourished, no cyanosis, pallor, or diaphoresis. EYES lids/conjunctiva normal. EARS/NOSE/THROAT Mucous membranes moist, nares normal, lips/teeth normal uvula midline without oral pharyngeal erythema, exudate or swelling TMs normal bilaterally. No lymphangitis/lymphedema. HEAD/NECK normocephalic atraumatic, no facial trauma, neck is supple. RESPIRATORY respiratory effort normal, speaks in full sentences, no tripod position, no accessory muscle use. Lungs clear to auscultation without rhonchi, wheezes, rales CARDIAC Regular rate and rhythm, no edema. ABDOMINAL Soft, ND/NT. No evidence of fluid wave. No pulsatile masses on exam, rebound tenderness, Morejon sign or pain over Mcburney's point. MUSCLES/EXTREMITIES No abnormal range of motion, no swelling. SKIN Warm, pink and dry. No rashes, dermatoses, petechiae or lesions. NEUROLOGICAL Speech is clear and appropriate. Normal level of consciousness. Gait and coordination are normal. 5/5 strength in all extremities. PSYCH Normal mood and affect. Judgement/competence is appropriate Results & Data Results & Data Vital Signs (Past 12 Hours) Vital Signs Temp Pulse Pulse Resp BP BP Pulse Ox 04/23/24 10:40 36.5 C 58 L 16 147/84 H 97 04/23/24 08:09 59 L 04/23/24 07:13 36.6 C 61 18 162/71 H 96 04/23/24 04:23 36.7 C 68 16 123/71 98 O2 Del Method 04/23/24 10:40 Room Air 04/23/24 08:09 04/23/24 07:13 Room Air 04/23/24 04:23 Room Air PG Care Time/CCT Total # of Minutes Spent Total Time Spent with Patient: Total time spent is greater than 50% in coordination of care (as documented) at patient's floor/unit and/or counseling patient: Coding Level of Care Code 72409 SUB INP/OBS CARE 2/35MIN Diagnoses Tachy-raymond syndrome I49.5
[2024-04-23] MEDS ORDERED: METOPROLOL TARTRATE 25 MG TAB PO SCH (11:30)
[2024-04-23 15:16] VITALS: O2SAT 96
--- NOTE | 2024-04-23 15:57 | Electrocardiogram Report ---
Test Reason : Blood Pressure : */* mmHG Vent. Rate : 62 BPM Atrial Rate : 62 BPM P-R Int : 108 ms QRS Dur : 92 ms QT Int : 436 ms P-R-T Axes : 90 41 183 degrees QTcB Int : 442 ms Sinus rhythm with occasional Premature ventricular complexes and Premature atrial complexes Nonspecific ST and T wave abnormality Abnormal ECG When compared with ECG of 22-Apr-2024 13:16, Sinus rhythm has replaced Atrial fibrillation Vent. rate has decreased by [address] no longer depressed in Anterior leads Nonspecific T wave abnormality has replaced inverted T waves in Inferior leads T wave inversion less evident in Anterolateral leads Confirmed by Tre Faust ([id number]) on 04/23/2024 3:56:58 PM Referred By: REFERRED SELF Confirmed By: Tre Faust
[2024-04-23] MEDS: APIXABAN 5 MG TABLET PO SCH (20:18)
--- NOTE | 2024-04-24 10:03 | Cardiology Progress Note ---
Date of Service April 24, 2024 Assessment & Plan (1) Atrial fibrillation: (2) Heart palpitations: Plan 1. Atrial fibrillation: This was her presenting rhythm. Likely due to her frequent atrial ectopy. We discussed multiple options for treatment, but at this point we have elected to simply monitor for recurrence. She is been placed on systemic anticoagulation which seems appropriate. 2. Tachycardia/palpitations: Rhythm appears improved compared to admission. Much less atrial ectopy. It seems she is returned to her baseline which involves some infrequent palpitations. As she is generally not bothered by the palpitations and this has been a longstanding problem we have retreated from our initial assumption that this would require aggressive treatment. She does have an element of mild bradycardia and aggressive treatment with beta-blockade, calcium channel blockers and/or flecainide could precipitate additional symptoms. She would seem to be a good candidate for a "pill in the pocket" approach with flecainide as well. However, at this point she wishes to avoid any therapy in the absence of recurrent or more severe symptoms. We have elected to perform some ambulatory monitoring. Additional recommendations will depend on the results of this monitoring and recurrent symptoms. Admission and Anticipated Discharge Date Admission Date: April 22, 2024 Subjective This morning the patient is feeling better. Her main concern was fatigue. However, this has improved. She has been ambulatory around her room without symptom. Still some palpitations but much improved and essentially back to baseline. No breathing difficulty. Review of Systems Review of Systems: Per HPI. Physical Exam Physical Exam: She is alert and oriented x3. Mood affect appear normal. She answered all questions appropriately. HEENT: Sclerae are anicteric. Pupils are equal and reactive to light and accommodation. Extraocular movements were intact. Neuro: Cranial nerves intact Lungs: Lungs are clear to auscultation bilaterally. There are no rales wheezes or rhonchi. She has normal respiratory effort without use of accessory muscles. There is normal pulmonary excursion. Cardiac: The rhythm was regular without ectopy. No murmurs. Extremities: Patient has bilateral radial pulses that are equal in intensity. There is no evidence cyanosis or clubbing. There was no evidence of significant peripheral edema bilaterally. Skin: There are no rashes noted on examination today. Results & Data Vital Signs (Past 12 Hours) Vital Signs Temp Pulse Pulse Resp BP Pulse Ox O2 Del Method 04/24/24 07:24 58 L 04/24/24 07:00 36.5 C 53 L 16 125/73 96 Room Air 04/24/24 02:56 36.4 C L 71 20 122/70 96 Room Air 04/23/24 23:19 36.7 C 53 L 20 121/68 96 Room Air PG Care Time/CCT Total # of Minutes Spent Total Time Spent with Patient: Total time spent is greater than 50% in coordination of care (as documented) at patient's floor/unit and/or counseling patient: Coding Level of Care Code 74786 SUB INP/OBS CARE 2/35MIN Diagnoses Atrial fibrillation I48.91 Heart palpitations R00.2
[2024-04-24 11:54] VITALS: PULSE 56; RESP 18; TEMP 98.2
--- NOTE | 2024-04-24 12:08 | Discharge Summary ---
Discharge Summary Date of Service April 24, 2024 Principal Dx & Hospital Course #1 = Principal Diagnosis (1) Tachy-raymond syndrome: -cardiology recommending tele monitoring over the weekend to exam rhythm -pt agreeing to stay -F/u echo results -afib/aflutter -pt started on Eliquis -cardiology following -out patient monitoring -d/c with flecainide prn Admission HPI Per Admitting Provider Khushi is a pleasant 68-year-old female without significant PMH. She presented on 04/22 for intermittent episodes of tachycardia and bradycardia. Patient reports she does have an extensive cardiac history. For the main part she is experienced bradycardia in the past. She would have episodes where she would be sitting at home watching TV, and she would feel her heart rate dropped into the 30 to 40 bpm range. She also has this occur when she is driving for extended periods of time. She begins to feel lightheaded, and so she usually tries to get up and walk around, and this alleviates some of her symptoms. In the past month however, she had at least 4 episodes of chest palpitations and rapid heart rate, with the last episode being the morning on 04/22 when it got up to 165 bpm (per her watch). No prior history of atrial fibrillation to her knowledge. She was recently tried to get set up with a brand recorder here in [place], and was recommended to be set up with an copper flotation operator in [place]. Patient did have a Holter monitor 3 years ago, but they reportedly did not see any bradycardia at that time. She is not currently following with brand recorder; shantelle medel being transferred [facility] from [facility] to the [facility]. No prior history of heart stents. She has had 2 catheterizations in the past both of which were "clean". Her last catheterization was around 5 years ago. Her only daily medication is hydrochlorothiazide 12.5 mg daily which she takes for fluid buildup; no issues with her blood pressure. Occasionally she also takes seasonal allergy medications. Patient only drinks 1 cup of coffee in the morning, and does not believe that this is secondary to caffeine. She denies any syncopal episodes with her bradycardia, but has been as low as 36 bpm before. She does endorse being around several sick contacts this past week, including her who had a cough and congestion, and her daughter who had influenza A. Patient denies noticing any rashes on her body or tick bites. Patient denies smoking, tobacco use, recent alcohol use. She reports she has not had an echocardiogram done in an extended period of time; unsure how long. Patient is hypertensive at 159/104 at time admission; vitals otherwise stable. ED course: NSS 1000 mL IV ROS: Patient endorses generalized fatigue, lightheadedness, headache, difficulty swallowing, chest palpitations (with tachycardia), lightheadedness (with bradycardia), and dry cough. Patient denies syncope, fever, chills, night-sweats, chest pain, pleuritic CP, SOB, abdominal pain, N/V/D, changes in urinary/bowel habits, or numbness or tingling in her arms or legs. Discharge Exam GENERAL APPEARANCE NAD, activity normal for age, well developed/ well nourished, no cyanosis, pallor, or diaphoresis. EYES lids/conjunctiva normal. EARS/NOSE/THROAT Mucous membranes moist, nares normal, lips/teeth normal uvula midline without oral pharyngeal erythema, exudate or swelling TMs normal bilaterally. No lymphangitis/lymphedema. HEAD/NECK normocephalic atraumatic, no facial trauma, neck is supple. RESPIRATORY respiratory effort normal, speaks in full sentences, no tripod position, no accessory muscle use. Lungs clear to auscultation without rhonchi, wheezes, rales CARDIAC Regular rate and rhythm, no edema. ABDOMINAL Soft, ND/NT. No evidence of fluid wave. No pulsatile masses on exam, rebound tenderness, Morejon sign or pain over Mcburney's point. MUSCLES/EXTREMITIES No abnormal range of motion, no swelling. SKIN Warm, pink and dry. No rashes, dermatoses, petechiae or lesions. NEUROLOGICAL Speech is clear and appropriate. Normal level of consciousness. Gait and coordination are normal. 5/5 strength in all extremities. PSYCH Normal mood and affect. Judgement/competence is appropriate Discharge Plan Discharge Items Patient Disposition: Home - Self-Care Reason For Visit: TACHY-RAYMOND SYNDROME Discharge Diagnosis: afib Activity: Resume your previous activity Non-emergency contact: Primary Care Provider Call non-emergency contact if: you have any medication questions Follow-up/Referrals: Kirstie Fajardo MD [Primary Care Provider] - Diet: Regular Addtl Attending Provider Instructions: Follow up with cardiology in 1 week Pending Studies at Discharge: No Stand-Alone Forms: My [facility] [employer], Smoking Cessation Medications and DC Order Prescriptions: New Eliquis 5 mg Tablet 5 mg PO BID Qty: 60 0RF flecainide 100 mg tablet 200 mg PO DAILY PRN (Reason: rapid afib ) Qty: 30 0RF Continued alprazolam 0.25 mg tablet 0.25 mg PO UD Rx Instructions: last filled 12/23/23 60 day supply hydrochlorothiazide 12.5 mg tablet 12.5 mg PO DAILY Discharge Orders: Discharge Order (Routine); Ordered 04/24/24 Ordered By: Junito Holloway Admission Data Admit Date/Time: 04/22/24 18:32 Attending Provider: Junito Holloway Admit Provider: Tony Callahan Primary Care Provider: Kirstie Fajardo Other Providers: Tony Callahan; Tre Faust Hospital Stay Data Consultations 04/22/24 17:52 ED Decision to Admit Stat 04/22/24 18:26 Consult Cardiology Routine Diagnostic Imagining Performed 04/22/24 16:35 CT for pulmonary embolism PE [CT angio chest PE protocol] Stat Pending Results Patient Have Any Pending Studies at Discharge: No Discharge Instructions Given to Patient (Per Discharging Provider) Follow up with cardiology in 1 week Total Time Total Time Spent Total Time Spent (In Minutes): 50 Coding Level of Care Code 84317 INP/OBS DISCH >30 MIN Diagnoses Tachy-raymond syndrome I49.5
[2024-04-24 12:22] VITALS: BP 123/71
[2024-04-24] MEDS ORDERED: Nursing to Pharmacy Communication SCH (13:00)
[2024-04-24] MEDS ORDERED: APIXABAN 5 MG TABLET PO SCH (21:00)
--- NOTE | 2024-04-25 13:06 | Electrocardiogram Report ---
Test Reason : Blood Pressure : */* mmHG Vent. Rate : 62 BPM Atrial Rate : 62 BPM P-R Int : 124 ms QRS Dur : 96 ms QT Int : 438 ms P-R-T Axes : 78 38 198 degrees QTcB Int : 444 ms Sinus rhythm with occasional Premature ventricular complexes Abnormal ECG When compared with ECG of 22-Apr-2024 17:44, Premature atrial complexes are no longer Present Confirmed by Tre Faust ([id number]) on 04/25/2024 1:05:49 PM Referred By: REFERRED SELF Confirmed By: Tre Faust
== END 2024-04-24 14:08 | disposition home or self-care (01) | DRG 310 ==
LOC: ED 12:18 → EDINP 18:32 → SUATTDRO 18:32 → 4W 21:40